=== PATIENT | male | born 1985 | race African-American/Black ===

== ENCOUNTER 2017-12-09 14:00 | Emergency (ER) | payer SELFPAY ==
[~2017-12-09] VITALS: Ht 160 cm; Wt 82.0 kg
[~2017-12-09 14:00] MED LIST: HYDR2.5T PO; NAPR550 PO; TRAM50 PO; Z.0.NO CURRENT MEDS
[2017-12-09 14:04] VITALS: BP 134/80; PULSE 85; RESP 16; TEMP 98.4; O2SAT 99
--- NOTE | 2017-12-09 14:37 | PD ---
HPI Chief Complaint: Injury Time Seen by Provider: 14:27 Travel History International Travel<30 days: No Contact w/Intl Traveler<30days: No Traveled to known affect area: No History of Present Illness HPI 32-year-old male presents to emergency department with complaint of right ankle pain and swelling 3 days after stepping in a drain in the floor and twisting his ankle. Denies paresthesias, loss of sensation to the affected extremity. Rates pain 10/10. Has not taken any medication or try any treatments to alleviate his symptoms. Described as throbbing. Worse with pressure, ambulation. Better at rest. No primary care provider. No known allergies. Denies significant past medical history. Has no other medical complaints. No other modifying factors or associated signs and symptoms per [facility] Social History Tobacco Use: No Allergies-Medications (Allergen,Severity, Reaction): Coded Allergies: No Known Allergies (Verified Adverse Reaction, Unknown, 12/09/17) Reported Meds & Prescriptions Reported Meds & Active Scripts Active No Active Prescriptions or Reported Medications Review of Systems Except as stated in HPI: all other systems reviewed are Neg Physical Exam Narrative GENERAL: Well-nourished, well-developed black male patient, in no acute distress SKIN: Warm and dry. HEAD: Atraumatic. Normocephalic. EYES: Pupils equal and round. No scleral icterus. No injection or drainage. ENT: Mucosa pink and moist. Airway patent. NECK: Trachea midline. CARDIOVASCULAR: Regular rate. RESPIRATORY: No accessory muscle use. GASTROINTESTINAL: Flat. MUSCULOSKELETAL: Right ankle with point tenderness to the lateral malleolar, medial malleolus, and mid foot zone with palpation; minimal swelling to all areas; without ecchymosis or erythema; no obvious deformity. Right lower extremity is supple and nontense with 2+ pedal pulse and sensory intact. No obvious deformities. No clubbing. No cyanosis. No edema. NEUROLOGICAL: Awake and alert. Oriented 3. No obvious cranial nerve deficits. Motor grossly within normal limits. Normal speech. PSYCHIATRIC: Appropriate mood and affect; insight and judgment normal. Data Data Last Documented VS Vital Signs Date Time Temp Pulse Resp B/P (MAP) Pulse Ox O2 Delivery O2 Flow Rate FiO2 12/09/17 14:04 98.4 85 16 134/80 (98) 99 Orders Orders Ankle, Complete ([id number]) (12/09/17 14:33) Ice/Cold Pack (6/3/18 14:33) Crutches (12/09/17 14:33) Ibuprofen (Motrin) (12/09/17 14:45) Splint Or Brace Apply/Monitor (12/09/17 17:44) Ed Discharge Order (12/09/17 17:44) [facility] Medical Decision Making Medical Screen Exam Complete: Yes Emergency Medical Condition: Yes Medical Record Reviewed: Yes Differential Diagnosis Ankle injury, ankle sprain, ankle fracture Narrative Course 32-year-old male with right ankle injury. Ibuprofen and right ankle x-ray ordered. 1745: Right ankle x-ray concluded: Last 24 hours Impressions Ankle X-Ray 12/09/17 1433 Signed Impressions: CONCLUSION: No evidence of fracture or subluxation of the right ankle. Os trigonum noted. She provided a copy of the x-ray report. Crutches, hetal bandage and ankle stirrup splint provided for support. Instructed patient to follow-up outpatient in 7-10 days if symptoms persist. Instructed patient to follow up with primary care provider. Patient verbalizes understanding and agreement with treatment plan. Patient is medically cleared and stable for discharge. Discussed reasons to return to the emergency department. Patient agrees with treatment plan. The patients vital signs are stable and the patient is stable for outpatient follow-up and treatment. Patient discharged home, stable and in no acute distress. Diagnosis Primary Impression: Right ankle injury Qualified Codes: S99.911A - Unspecified injury of right ankle, initial encounter Referrals: [facility] Primary Care Physician Patient Instructions: Ankle Sprain (ED), Crutch Instructions (ED), General Instructions Departure Forms: Tests/Procedures, Work Release Enter return to work date: Dec 17, 2017 Additional Instructions: Tylenol or ibuprofen as directed and as needed for pain and inflammation Rest, ice, compress, and elevate extremity to decrease pain and inflammation Ankle Brace for support Crutches for support Avoid aggravating activity; increase activity as tolerated Follow-up with primary care provider Return to the emergency department immediately with worsening of symptoms Med/Other Pt SpecificInfo: Prescription(s) given Scripts Ibuprofen (Ibuprofen) 800 Mg Tab 800 MG PO Q6HR Y for PAIN, #30 TAB 0 Refills Prov: Alison Rausch [employer]PER[employer] 12/09/17 Disposition: 01 DISCHARGE HOME Condition: Stable Alison Rausch Dec 09, 2017 14:37
[2017-12-09] MEDS ORDERED: IBUPROFEN 800 MG TAB PO ONE (14:45)
--- NOTE | 2017-12-09 16:03 | RADRPT ---
EXAM DATE: 12/09/2017 3:52 PM EDT AGE/SEX: 32 years / Male INDICATIONS: Pain in right ankle. Patient stated he tripped and fell 3 days ago. CLINICAL DATA: This is the patient's initial encounter. Patient reports that signs and symptoms have been present for 3 days and indicates a pain score of 8/10. MEDICAL/SURGICAL HISTORY: None. None. COMPARISON: No prior [facility] exams available for comparison. FINDINGS: Bony structures are intact and in normal alignment. Joints are intact without dislocation or signifi cant arthropathy. Osseous density is normal. Soft tissues are unremarkable. No radiopaque foreign bodies seen. Incidentally seen os trigonum. CONCLUSION: No evidence of fracture or subluxation of the right ankle. Os trigonum noted. Electronically signed by: Hank Gr MD 12/09/2017 4:02 PM EDT
[2017-12-09] MEDS ORDERED: IBUP1TAB7 PO (17:47)
== END 2017-12-09 18:02 | disposition home or self-care (01) ==
LOC: NEPD 14:00
DX: S99.911A Unspecified injury of right ankle, initial encounter (principal); X50.1XXA Overexertion from prolonged static or awkward postures, initial encounter
CPT/HCPCS: 73610; 99283; E0113; L1906